=== PATIENT | female | born 1955 | race Caucasian/White ===

== ENCOUNTER 2023-10-21 13:42 | Inpatient (IN) | payer MEDICARE, MEDICAID ==
[~2023-10-21] VITALS: Ht 160 cm; Wt 51.3 kg
[2023-10-21] MEDS ORDERED: ONDANSETRON HCL 4MG/2ML INJ IV STA (14:18)
[2023-10-21] MEDS ORDERED: ACETAMINOPHEN 325MG TABLET PO STA (14:18)
[2023-10-21] MEDS ORDERED: SODIUM CHLORIDE 0.9% 1,000 ML IV ONE (14:30)
[2023-10-21 15:16] LABS: BG BASE EXCESS 3.8 mmol/L (-2.0-2.0); BG CARBOXYHEMOGLOBIN 1.6 % (0.5-1.5); BG DEOXYHEMOGLOBIN 9.5 % (0.0-5.0); BG FRACTION INSPIRED OXYGEN 36; BG HCO3 ACT 30.3 mmol/L (22.0-26.0); BG METHEMOGLOBIN 0.1 % (0.0-1.5); BG OXYGEN SATURATION 90.3 % (92.0-98.5); BG OXYHEMOGLOBIN 88.8 % (94.0-97.0); BG PCO2 53.1 mmHg (35.0-45.0); BG PH 7.374 (7.350-7.450); BG PO2 60.4 mmHg (75.0-100.0); BG SAMPLE SITE RIGHT RADIAL; BG VENT MODE NASAL CANNULA
[2023-10-21 15:24] LABS: HEMATOCRIT. 37.7 % (36.0-48.0); HEMOGLOBIN. 13.1 g/dL (12.0-16.0); MEAN CORPUSCULAR HGB CONC 34.9 g/dL (31.0-37.0); MEAN CORPUSCULAR VOLUME 88.8 fL (81.0-99.0); MEAN PLATELET VOLUME 8.8 fl (7.4-10.4); PLATELET 234 x1000/uL (130-400); RED BLOOD CELL COUNT 4.24 mill/uL (4.2-5.4); RED CELL DISTRIBUTION WIDTH 13.4 % (11.6-14.6); WHITE BLOOD COUNT 16.9 x1000/uL (4.5-11.0)
[2023-10-21 15:27] LABS: DIFFERENTIAL COMMENT 1
[2023-10-21] MEDS ORDERED: CEFTRIAXONE 1GM PREMIX 50 ML IV NR (15:30)
[2023-10-21] MEDS ORDERED: AZITHROMYCIN 500MG/250ML 250 ML IV NR (15:30)
[2023-10-21 15:36] LABS: PROTHROMBIN TIME 11.2 sec (9.6-11.0)
[2023-10-21 15:44] LABS: ATYPICAL LYMPHOCYTES 1; PLATELET ESTIMATE NORMAL
[2023-10-21 16:47] LABS: LACTIC ACID 2.4 mmol/L (0.4-2.0)
[2023-10-21 16:51] LABS: ALANINE AMINOTRANSFERASE 12 IU/L (10-49); ALBUMIN 3.9 g/dL (3.2-4.8); ASPARTATE AMINOTRANSFERASE 25 IU/L (<34); BILIRUBIN TOTAL 0.4 mg/dL (0.1-1.0); CALCIUM 9.3 mg/dL (8.7-10.4); CARBON DIOXIDE 30 mEq/L (21-32); CHLORIDE 95 mEq/L (98-107); CREATININE 0.9 mg/dL (0.6-1.0); GLUCOSE 116 mg/dL (70-105); POTASSIUM 4.4 mEq/L (3.5-5.1); PROTEIN TOTAL 7.4 g/dL (6.0-8.3); SODIUM 132 mEq/L (136-145); UREA NITROGEN BLOOD 26 mg/dL (9-23)
[2023-10-21 17:10] LABS: ETHANOL BLOOD < 10 mg/dL (<10)
[2023-10-21] MEDS ORDERED: NOREPINEPHRINE 8MG/250ML PMX 250 ML IV ONE (18:00)
[2023-10-21 19:00] LABS: TROPONIN I HIGH SENSITIVITY < 4 ng/L (3.0-34)
[2023-10-21 19:03] LABS: TROPONIN I HIGH SENSITIVITY < 4 ng/L (3.0-34)
[2023-10-21 21:22] LABS: CLARITY URINE CLEAR (CLEAR); COLOR URINE DARK YELLOW (YELLOW); GLUCOSE URINE NEGATIVE (NEGATIVE); KETONES URINE NEGATIVE (NEGATIVE); LEUKOCYTE ESTERASE URINE TRACE (NEGATIVE); NITRITE URINE NEGATIVE (NEGATIVE); OCCULT BLOOD URINE NEGATIVE (NEGATIVE); PH URINE 5.5 (4.5-8.0); PROTEIN URINE TRACE (NEGATIVE); SPECIFIC GRAVITY URINE 1.018 (1.005-1.030)
[2023-10-21 21:34] LABS: *AMPHETAMINES SCREEN URINE PRESUMPTIVE POSITIVE (NEGATIVE); *BARBITURATES SCREEN URINE NEGATIVE (NEGATIVE); *BENZODIAZEPINES SCREEN URINE NEGATIVE (NEGATIVE); *COCAINE SCREEN URINE NEGATIVE (NEGATIVE); CANNABINOID URINE SCREEN NEGATIVE (NEGATIVE); ECSTASY MDMA SCREEN URINE CONF.TEST INDICATED (NEGATIVE); METHADONE URINE SCREEN Pos (NEGATIVE); OPIATES URINE SCREEN NEGATIVE (NEGATIVE); PHENCYCLIDINE URINE SCREEN NEGATIVE (NEGATIVE)
[2023-10-21 21:41] LABS: RBC URINE 0-2 /hpf (0-2); SQUAMOUS EPITHELIAL CELL URINE 1+ /lpf (RARE/1+)
[2023-10-21 21:42] LABS: BACTERIA URINE 1+; HYALINE CASTS URINE 0-5 /lpf; YEAST URINE NONE SEEN
[2023-10-22 03:50] VITALS: BP 114/63; PULSE 74; RESP 16; TEMP 98.2
[2023-10-22] MEDS ORDERED: CEFTRIAXONE 1GM PREMIX 50 ML IV SCH (07:15)
[2023-10-22 08:00] VITALS: BP 104/62; PULSE 79; TEMP 98.8
[2023-10-22] MEDS: SODIUM CHLORIDE 0.9% 1,000 ML IV SCH ×2 (08:00→21:20)
[2023-10-22] MEDS: ENOXAPARIN 40MG/0.4ML SYR SUBCUT SCH (09:53)
[2023-10-22 12:00] VITALS: BP 106/70; PULSE 71; TEMP 97.5
[2023-10-22] MEDS: METHADONE HCL 10MG TABLET PO SCH (12:28)
[2023-10-22] MEDS: CEFTRIAXONE 1,000 MG in DEXTROSE 5% WATER 50 ML IV SCH (14:27)
[2023-10-22] MEDS ORDERED: AZITHROMYCIN 500 MG in DEXT 5% WATER 250 ML IV SCH (15:00)
[2023-10-22] MEDS: AZITHROMYCIN 250 MG TABLET PO SCH (15:05)
[2023-10-22 15:18] LABS: BASOPHILS % 0.4 % (0.0-2.0); EOSINOPHILS % 1.4 % (0.0-5.0); HEMATOCRIT. 33.9 % (36.0-48.0); HEMOGLOBIN. 11.6 g/dL (12.0-16.0); LYMPHOCYTES % 7.6 % (20.0-50.0); MEAN CORPUSCULAR HEMOGLOBIN 30.5 pg (28.0-32.0); MEAN CORPUSCULAR HGB CONC 34.3 g/dL (31.0-37.0); MEAN CORPUSCULAR VOLUME 88.7 fL (81.0-99.0); MEAN PLATELET VOLUME 9.1 fl (7.4-10.4); MONOCYTES % 12.1 % (2.0-8.0); NEUTROPHILS % 78.5 % (40.0-76.0); PLATELET 212 x1000/uL (130-400); RED BLOOD CELL COUNT 3.82 mill/uL (4.2-5.4); RED CELL DISTRIBUTION WIDTH 13.4 % (11.6-14.6); WHITE BLOOD COUNT 9.5 x1000/uL (4.5-11.0)
[2023-10-22 15:36] LABS: ALANINE AMINOTRANSFERASE 11 IU/L (10-49); ALBUMIN 3.3 g/dL (3.2-4.8); ASPARTATE AMINOTRANSFERASE 22 IU/L (<34); BILIRUBIN TOTAL 0.2 mg/dL (0.1-1.0); CALCIUM 8.5 mg/dL (8.7-10.4); CARBON DIOXIDE 36 mEq/L (21-32); CHLORIDE 100 mEq/L (98-107); GLUCOSE 98 mg/dL (70-105); POTASSIUM 4.5 mEq/L (3.5-5.1); SODIUM 135 mEq/L (136-145); UREA NITROGEN BLOOD 14 mg/dL (9-23)
[2023-10-22 15:44] LABS: CREATININE 0.5 mg/dL (0.6-1.0); PROTEIN TOTAL 5.4 g/dL (6.0-8.3)
[2023-10-22 16:00] VITALS: BP 132/121; PULSE 77; TEMP 98.6
[2023-10-22 19:46] VITALS: PULSE 82; RESP 18
[2023-10-22] MEDS: IPRATROPIUM/ALBUTEROL 0.5-3(2.5)MG/3ML NEB HHN SCH (19:46)
[2023-10-22 20:15] VITALS: BP 114/73; PULSE 83; RESP 16; TEMP 98.7
[2023-10-22] MEDS ORDERED: LORAZEPAM 1MG TABLET PO PRN (23:30)
[2023-10-23] VITALS (10 sets, daily range): BP systolic 108–138; BP diastolic 60–77; PULSE 72–87; RESP 9–20; TEMP 97.1–99.3; O2SAT 93–97
[2023-10-23] MEDS: IPRATROPIUM/ALBUTEROL 0.5-3(2.5)MG/3ML NEB HHN SCH ×4 (01:56→21:10)
[2023-10-23] MEDS ORDERED: LEVO750T68 MT (09:37)
[2023-10-23] MEDS: METHADONE HCL 10MG TABLET PO SCH (09:39)
[2023-10-23] MEDS: ENOXAPARIN 40MG/0.4ML SYR SUBCUT SCH (09:40)
[2023-10-23] MEDS: DOCUSATE SODIUM 250MG CAPSULE PO SCH ×3 (09:40→16:41)
[2023-10-23] MEDS: SODIUM CHLORIDE 0.9% 1,000 ML IV SCH (09:57)
[2023-10-23] MEDS: CEFTRIAXONE 1,000 MG in DEXTROSE 5% WATER 50 ML IV SCH (15:10)
[2023-10-23] MEDS: AZITHROMYCIN 250 MG TABLET PO SCH (15:10)
[2023-10-23 16:23] LABS: BASOPHILS % 0.4 % (0.0-2.0); EOSINOPHILS % 1.6 % (0.0-5.0); HEMATOCRIT. 33.5 % (36.0-48.0); HEMOGLOBIN. 11.3 g/dL (12.0-16.0); LYMPHOCYTES % 8.2 % (20.0-50.0); MEAN CORPUSCULAR HGB CONC 33.7 g/dL (31.0-37.0); MEAN CORPUSCULAR VOLUME 89.1 fL (81.0-99.0); MEAN PLATELET VOLUME 8.4 fl (7.4-10.4); NEUTROPHILS % 77.8 % (40.0-76.0); PLATELET 235 x1000/uL (130-400); RED BLOOD CELL COUNT 3.75 mill/uL (4.2-5.4); RED CELL DISTRIBUTION WIDTH 13.7 % (11.6-14.6); WHITE BLOOD COUNT 9.3 x1000/uL (4.5-11.0)
[2023-10-23 16:52] LABS: CALCIUM 8.3 mg/dL (8.7-10.4); CARBON DIOXIDE 34 mEq/L (21-32); CHLORIDE 99 mEq/L (98-107); CREATININE 0.5 mg/dL (0.6-1.0); GLUCOSE 121 mg/dL (70-105); POTASSIUM 4.1 mEq/L (3.5-5.1); SODIUM 136 mEq/L (136-145); UREA NITROGEN BLOOD 11 mg/dL (9-23)
[2023-10-24] VITALS (8 sets, daily range): BP systolic 127–154; BP diastolic 77–96; PULSE 80–90; RESP 10–24; TEMP 98.3–98.6; O2SAT 92–96
[2023-10-24] MEDS: SODIUM CHLORIDE 0.9% 1,000 ML IV SCH ×2 (00:13→13:20)
[2023-10-24] MEDS: IPRATROPIUM/ALBUTEROL 0.5-3(2.5)MG/3ML NEB HHN SCH ×2 (02:43→09:41)
[2023-10-24] MEDS: DOCUSATE SODIUM 250MG CAPSULE PO SCH (09:57)
[2023-10-24] MEDS: ENOXAPARIN 40MG/0.4ML SYR SUBCUT SCH (09:57)
[2023-10-24] MEDS: METHADONE HCL 10MG TABLET PO SCH (12:47)
== END 2023-10-24 14:07 | disposition home or self-care (01) | DRG 871 ==
LOC: ER 13:42 → EDBD 16:35 → MICUSO 16:35 → EDBEDREQTM 16:38 → EDBEDREQ 16:38 → 3WST 10-22 02:49
PROVIDERS: ADMIT Internal Medicine; ATTEND Internal Medicine
DX: A41.9 Sepsis, unspecified organism (principal); J18.9 Pneumonia, unspecified organism; J96.01 Acute respiratory failure with hypoxia; E87.1 Hypo-osmolality and hyponatremia; F11.20 Opioid dependence, uncomplicated; J44.0 Chronic obstructive pulmonary disease with (acute) lower respiratory infection; Z59.01 Sheltered homelessness; J44.1 Chronic obstructive pulmonary disease with (acute) exacerbation; Z20.822 Contact with and (suspected) exposure to COVID-19; F17.210 Nicotine dependence, cigarettes, uncomplicated; K44.9 Diaphragmatic hernia without obstruction or gangrene; Z87.01 Personal history of pneumonia (recurrent); Z88.2 Allergy status to sulfonamides
CPT/HCPCS: 36415; 36600; 71045; 71250; 80048; 80053; 80305; 80320; 81003; 82375; 82805; 82962; 83605; 83880; 84145; 84484; 85025; 87426; 87804; 93005; 93306; 93970; 94640; 99291; C9803; J0456; J0696; J1650; J2405; J3490; J7030; J7060; G0480